=== PATIENT | female | born 1990 | race Caucasian/White ===

== ENCOUNTER 2020-12-17 15:50 | Inpatient (IN) | payer BC, SELFPAY ==
[2020-12-17] VITALS (61 sets, daily range): BP systolic 54–132; BP diastolic 46–93; PULSE 50–260; TEMP 36.2–36.7; O2SAT 98–100; BMI 29.1
--- NOTE | 2020-12-17 16:21 | LDADM ---
This patient, Giselle Tomas, was admitted to Labor/Delivery/Recovery 103 on 12/17/20 at 15:50. Plans for labor, pain management and were discussed with patient. Patient/family oriented to hospital policies and general routines including ID bracelet, bed and alarms, visiting hours, pain management, procedures, bathroom and other care routines, personal items, smoking policy, room service/diet and guest tray routines, infant security routines, and visiting hours. Patient/Family are encouraged to report perceived risks to care and to ask questions if they do not understand what they are told or what they should do. See OBIX for further documentation.
[2020-12-17 16:30] LABS: Basophils Percent Auto 0.5 % (0.2-1.2); Eosinophils Absolute Auto 0.1 K/mm3 (0-0.3); Eosinophils Percent Auto 1.2 % (0-4.4); Hematocrit 34.7 % (37.0-47.0); Hemoglobin 11.7 g/dL (12.0-15.0); Immature Granulocyte Absolute 0.05 K/mm3 (0.00-0.031); Immature Granulocyte Percent A 0.6 % (0-0.5); Immature Platelet Fraction Pct 19.3 % (0.9-11.2); Lymphocytes Absolute Auto 2.53 K/mm3 (0.9-3.2); Lymphocytes Percent Auto 31.1 % (18.3-44.2); Mean Corpuscular HGB Conc 33.7 g/dl (32-36); Mean Corpuscular Hemoglobin 27.5 pg (26-34); Mean Corpuscular Volume 81.6 fl (80-100); Mean Platelet Volume 13.5 fl (7.4-10.4); Monocytes Absolute Auto 0.6 K/mm3 (0.1-0.6); Monocytes Percent Auto 7.3 % (2.6-8.5); Neutrophils Absolute Auto 4.8 K/mm3 (1.3-6.7); Neutrophils Percent Auto 59.3 % (45.5-73.1); Platelet Count Result 164 k/mm3 (150-375); Red Blood Count 4.25 M/mm3 (4.2-5.4); Red Cell Distribution Width 12.8 % (11.5-14.5); White Blood Count 8.1 K/mm3 (4.5-10.0)
[2020-12-17] MEDS: LACTATED RINGERS 1,000 ML 125 ML IV CONT ×3 (16:30→23:32)
[2020-12-17] MEDS: DINOPROSTONE 10 MG VAG INSERT VAGINAL (16:31)
[2020-12-17] MEDS: AMPICILLIN 2 GM/NS 100 ML 2 GM/100 ML BAG IVPB (16:31)
[2020-12-17] MEDS: AMPICILLIN 1 GM/NS 50 ML 1 GM/50 ML BAG IVPB (20:30)
--- NOTE | 2020-12-17 21:24 | P.PNAN_ITS ---
Anes - Eval Pre Procedure Procedure: Labor epidural Date/Time: 12/17/20 21:24 Surgeon: joey Preop Diagnosis: pain during labor Pre Op Diagnosis: ind Patient Data Age: 30 Gender: F Height: 1.65 m Weight: 79.5 kg Last Vital Signs Temp 36.7 C 12/17/20 16:15 Pulse 71 12/17/20 18:31 BP 125/78 12/17/20 18:31 Allergies Allergy/AdvReac Type Severity Reaction Status Date / Time No Known Allergies Allergy Verified 11/25/20 15:00 Home Medications Medication Instructions Recorded Confirmed Type prenat.vits,nataliya,xkq-blhs-hufle 1 tablet PO DAILY 11/25/20 12/17/20 History [ #2] Laboratory Tests 12/17/20 12/17/20 12/17/20 16:17 16:17 16:17 WBC 8.1 K/mm3 K/mm3 (4.5-10.0) RBC 4.25 M/mm3 M/mm3 (4.2-5.4) Hgb 11.7 g/dL L g/dL (12.0-15.0) Hct 34.7 % L % (37.0-47.0) MCV 81.6 fl fl (80-100) MCH 27.5 pg pg (26-34) MCHC 33.7 g/dl g/dl (32-36) RDW 12.8 % % (11.5-14.5) Plt Count 164 k/mm3 k/mm3 (150-375) MPV 13.5 fl H fl (7.4-10.4) Immature Gran % (Auto) 0.6 % H % (0-0.5) Neut % (Auto) 59.3 % % (45.5-73.1) Lymph % (Auto) 31.1 % % (18.3-44.2) [place] % (Auto) 7.3 % % (2.6-8.5) Eos % (Auto) 1.2 % % (0-4.4) Baso % (Auto) 0.5 % % (0.2-1.2) Lymph # (Auto) 2.53 K/mm3 K/mm3 (0.9-3.2) [place] # (Auto) 0.6 K/mm3 K/mm3 (0.1-0.6) Eos # (Auto) 0.1 K/mm3 K/mm3 (0-0.3) Baso # (Auto) 0.0 K/mm3 K/mm3 (0.0-0.1) Abs Immat Gran (auto) 0.05 K/mm3 H K/mm3 (0.00-0.031) Absolute Neuts (auto) 4.8 K/mm3 K/mm3 (1.3-6.7) Absolute Nucleated RBC 0.0 K/mm3 K/mm3 (0.0-0.012) Nucleated RBC % 0.0 % % (0.0-0.2) % Immature Plt Fraction 19.3 % H % (0.9-11.2) RPR Pending Blood Type B Positive Antibody Screen Negative Patient hx anesthesia problems: none Family hx anesthesia problems: none PMFSH Past Medical History Medical History (Updated 12/17/20 @ 21:24 by Dolores Beebe CRNA) IUP (intrauterine ), incidental Family History Family History (Updated 12/17/20 @ 16:24 by Audrey Gray RN) Other No known health problems Social History Social History Smoking status: Never smoker Second hand tobacco smoke exposure: No Substance use: never Spiritual care concerns: No Exam Day of Procedure 12/17/20 21:24
[2020-12-17] MEDS: PHENYLEPHRINE 1,000 MCG/10 ML SYRINGE 100 MCG IV PUSH (21:58)
[2020-12-17] MEDS: TERBUTALINE SULFATE 1 MG/ML VIAL 0.25 MG SUB-Q (22:26)
[2020-12-17] MEDS: ONDANSETRON INJ 4 MG/2 ML VIAL IV PUSH (22:33)
--- NOTE | 2020-12-17 22:49 | PM.IMHP ---
H&P: HPI History of Present Illness Date/Time: 12/17/20 22:49 30 y/o G1 at 39 1/7 weeks by LMP 03/18/20 giving a due date of 12/23/20. GBS pos. Here for induction of labor. Cervidil was placed. She then had SROM and it has been withdrawn. Now comfortable with epidural. Had a FHR deceleration associated with tachysystole, has resolved. Tracing now Category I. Chief Complaint: Here for labor induction Review of Systems Review of Systems: All systems reviewed & are unremarkable except as noted in HPI and below PMFSH Past Medical History Medical History IUP (intrauterine ), incidental Family History Family History Other No known health problems Social History Social History Smoking status: Never smoker Second hand tobacco smoke exposure: No Substance use: never Spiritual care concerns: No Meds Home Medications and Allergies Home Medications Medication Instructions Recorded Confirmed Type prenat.vits,nataliya,tfk-lctf-rfhhs 1 tablet PO DAILY 11/25/20 12/17/20 History [ #2] Allergies Allergy/AdvReac Type Severity Reaction Status Date / Time No Known Allergies Allergy Verified 11/25/20 15:00 Vital Signs Vital Signs - 24 hr 12/17/20 16:11 12/17/20 16:15 12/17/20 16:16 Temperature 36.7 C Pulse Rate 93 92 Blood Pressure 125/93 H 123/86 Pulse Oximetry 12/17/20 16:46 12/17/20 17:01 12/17/20 17:16 Temperature Pulse Rate 75 76 76 Blood Pressure 116/82 123/81 126/84 Pulse Oximetry 12/17/20 17:31 12/17/20 17:46 12/17/20 18:01 Temperature Pulse Rate 72 73 66 Blood Pressure 122/78 123/76 132/76 Pulse Oximetry 12/17/20 18:16 12/17/20 18:31 12/17/20 21:40 Temperature Pulse Rate 93 71 Blood Pressure 116/80 125/78 Pulse Oximetry 100 12/17/20 21:41 12/17/20 21:44 12/17/20 21:45 Temperature Pulse Rate 75 82 Blood Pressure 112/74 118/75 Pulse Oximetry 100 100 12/17/20 21:46 12/17/20 21:47 12/17/20 21:49 Temperature 36.2 C L Pulse Rate 77 74 71 Blood Pressure 116/78 113/63 113/72 Pulse Oximetry 12/17/20 21:50 12/17/20 21:51 12/17/20 21:53 Temperature Pulse Rate 88 75 Blood Pressure 105/63 102/63 Pulse Oximetry 100 12/17/20 21:55 12/17/20 21:57 12/17/20 21:59 Temperature Pulse Rate 69 63 51 L Blood Pressure 98/59 L 115/61 130/85 Pulse Oximetry 98 12/17/20 22:00 12/17/20 22:01 12/17/20 22:03 Temperature Pulse Rate 65 73 Blood Pressure 111/59 L 91/61 L Pulse Oximetry 99 12/17/20 22:05 12/17/20 22:07 12/17/20 22:09 Temperature Pulse Rate 50 L 67 260 H Blood Pressure 110/82 110/75 94/72 L Pulse Oximetry 100 12/17/20 22:11 12/17/20 22:12 12/17/20 22:16 Temperature Pulse Rate 209 H 82 83 Blood Pressure 54/46 L 113/65 104/62 Pulse Oximetry 100 12/17/20 22:17 12/17/20 22:22 12/17/20 22:27 Temperature Pulse Rate Blood Pressure Pulse Oximetry 100 100 100 12/17/20 22:30 12/17/20 22:32 12/17/20 22:37 Temperature Pulse Rate 97 Blood Pressure 115/60 Pulse Oximetry 100 98 12/17/20 22:42 12/17/20 22:46 12/17/20 22:47 Temperature Pulse Rate 88 Blood Pressure 116/65 Pulse Oximetry 100 100 Exam Const: Orientation/consciousness: patient oriented x3 Other: Well-developed, well-nourished female in no acute distress. Neck: Thyroid: thyroid normal Lymphatic: no lymphadenopathy noted (in neck, axilla or inguinal nodes) Resp: Effort & Inspection: normal respiratory effort Auscultation: clear to auscultation bilaterally Cardio: Rate: regular rate Rhythm: regular rhythm Heart sounds: S1 normal heart sound present and S2 normal heart sound present GI: Other: ABD: Soft, nontender, nondistended, gravid. NST reactive. TOCO: contractions every 3-6 min.
[2020-12-17] MEDS: OXYTOCIN 30 UNITS/NS 500 ML 30 UNITS/500 ML BAG 6 UNITS IV CONT (23:32)
[2020-12-18] VITALS (91 sets, daily range): BP systolic 97–133; BP diastolic 54–88; PULSE 62–117; RESP 15–18; TEMP 36.1–37.2; O2SAT 100
[2020-12-18] MEDS: AMPICILLIN 1 GM/NS 50 ML 1 GM/50 ML BAG IVPB ×2 (00:29→04:37)
--- NOTE | 2020-12-18 05:39 | PM.OBPRVD ---
OB - Delivery Note Procedure Delivery date: 12/18/20 Procedure: Induction of labor with Induction method: per pitocin protocol and per cervidil protocol Delivery augmentation: pitocin Delivery monitor: external FHT, external uterine and internal uterine Route of delivery: Laceration Description: Perineal - 2nd Degree Delivery repair: vicryl (3-0) Specimen: Yes (cord blood) Quantitative Blood Loss (ml): 240 Anesthesia type: Epidural Disposition: PACU Complications: None Narrative: 30 y/o G1 at 39 2/7 weeks gestation who presented to the hospital for induction of labor. Cervidil was placed. She had SROM and the Cervidil was withdrawn. Oxytocin was administered intravenously. She received an epidural for pain control. Her labor progressed and her cervix dilated completely. She pushed with good effort and delivered the 's head to the perineum. A loose nuchal cord was splinted and the body delivered. The cord was reduced. The nose and mouth were bulb suctioned. After a delay, the cord was clamped and cut. The infant was handed off the field. Cord blood was collected. The placenta delivered spontaneously and was grossly normal in appearance. The usual 3 vessel cord was noted. A second degree midline perineal laceration was sustained. This was reapproximated using 3 0 Vicryl in the usual layered fashion. Excellent hemostasis resulted as did excellent reapproximation of the normal anatomy. Needle and instrument counts were correct. The patient was taken to recovery room in stable condition. The infant went to the nursery in stable condition. I was present and scrubbed for the entire delivery. [place] Baby Date of : 12/18/20 Time of : 05:15 Weeks of gestation at delivery: 39 gender: Male Weight (pounds): 7 Weight (ounces): 4 presentation: vertex position: Left Occiput Anterior Placenta delivery description: Spontaneous and Normal Configuration cord vessel description: 3 Vessels, Nuchal Cord and Delayed Cord Clamping score one minute: 8 score five minutes: 9
--- NOTE | 2020-12-18 05:41 | PM.OBDSVD ---
DS: Admitting Diagnosis Admitting Diagnosis Admitting Diagnosis: IUP at 39 weeks DS: Discharge Diagnosis Discharge Diagnosis (1) (normal spontaneous vaginal delivery): Code(s): O80 - Encounter for full-term uncomplicated delivery Status: Acute OB - DS: Summary OB Procedures : None OB Procedures Intrapartum: Spontaneous Vag Delivery OB Procedures: : None DS: Data Data Completed and Pending Labs on day of discharge: Labs from last 24 hours 12/17/20 12/17/20 12/17/20 16:17 16:17 16:17 WBC 8.1 RBC 4.25 Hgb 11.7 L Hct 34.7 L MCV 81.6 MCH 27.5 MCHC 33.7 RDW 12.8 Plt Count 164 MPV 13.5 H Immature Gran % (Auto) 0.6 H Neut % (Auto) 59.3 Lymph % (Auto) 31.1 [place] % (Auto) 7.3 Eos % (Auto) 1.2 Baso % (Auto) 0.5 Lymph # (Auto) 2.53 [place] # (Auto) 0.6 Eos # (Auto) 0.1 Baso # (Auto) 0.0 Abs Immat Gran (auto) 0.05 H Absolute Neuts (auto) 4.8 Absolute Nucleated RBC 0.0 Nucleated RBC % 0.0 % Immature Plt Fraction 19.3 H RPR Pending Blood Type B Positive Antibody Screen Negative Discharge Plan Discharge Attending physician on discharge: Chris Rees Discharging Clinician: Chris Rees Patient Disposition: Home, Self-Care Activity: pelvic rest Diet: regular Discharge Instructions: Education: Mom and Baby Guide Given to: Mother Follow-Up: Call your delivering provider's office for an appointment to be seen in: 6 Weeks Mom and baby should come to the [facility] for the follow-up appointment. Appointment Date/Time: December 20, 2020 at 8:00 am What to expect at your follow-up visit: Blood Pressure Check Physical Assessment Call [phone] if you are unable to keep your appointment time. BREAST CARE: * Wear a snug supportive bra. * For engorgement discomfort: Bottle Feeding: * May apply ice packs EPISIOTOMY/PERINEAL CARE: * Until bleeding stops, use your james bottle after urinating * Change your pad frequently throughout the day * You may take sitz baths several times a day (fill your bathtub with warm water and soak for 20 minutes.) Do NOT bathe in the water * No tub baths until seen by your physician - You may shower ACTIVITY: * Rest as much as possible. * Do not exercise or lift anything heavier than your baby (such as laundry or other children.) * Avoid stairs or driving as much as possible. * Do not put anything into the vagina. No douching, tampons, or sexual activity until seen by physician. NOTIFY PHYSICIAN IF YOU HAVE ANY QUESTIONS OR IF ANY OF THE FOLLOWING SYMPTOMS OCCUR: * If your vaginal area becomes red, swollen, or more painful than what you have experienced in the hospital. * If your vaginal bleeding becomes foul smelling. * If your vaginal bleeding becomes more heavy than a period or if your bleeding changes from pink to bright red. However, you may pass an occasional walnut-sized clot once or twice for the first week . * If you experience a sharp, shooting pain in your calves. * If you discover a hard, reddened area on your breast or if you experience flu-like symptoms. DIET: * Eat regular, well-balanced meals. * Drink plenty of fluids daily. .Call or return if temperature above 100.4? F, increased abdominal pain, increased vaginal bleeding or any new problems. Patient Instructions: Vaginal Delivery (DC) Stand Alone Forms: General Discharge Information Follow-up/Referrals: Chris Rees MD [Primary Care Provider] - 6 Weeks Discharge Medications: New ibuprofen 600 mg tablet 600 mg PO Q6H PRN (Reason: cramps) Qty: 30 RF: 0 Continued prenat.vits,nataliya,kpb-bhmc-ewhnb Tablet 1 tablet PO DAILY RF: 0 Date of admission: 12/17/20 15:50 Primary Care Provider: Chris Rees Admitting Provider: Chris Rees Attending physician on admission: Caitlyn
[2020-12-18] MEDS: OXYTOCIN 30 UNITS/NS 500 ML 30 UNITS/500 ML BAG 125 UNITS IV CONT (05:43)
[2020-12-18] MEDS: ACETAMINOPHEN 325 MG TABLET 650 MG PO ×2 (07:05→16:22)
[2020-12-18] MEDS: WITCH HAZEL 40 PADS 1 PAD TOPICAL (07:39)
--- NOTE | 2020-12-18 07:57 | OBPPTRN ---
Patient transferred to post room #286 via wheelchair. Support person present. Oriented to unit, room, information board, rooming in, admission packet and security measures. Patient verbalizes understanding.
[2020-12-18 10:21] LABS: Rapid Plasma Reagin Non-Reactive (NonReactive)
[2020-12-18] MEDS: IBUPROFEN 600 MG TABLET PO ×2 (11:57→20:27)
[2020-12-18] MEDS: DOCUSATE SODIUM 100 MG CAPSULE PO (16:22)
[2020-12-19] MEDS: IBUPROFEN 600 MG TABLET PO ×2 (02:42→08:36)
[2020-12-19] MEDS: ACETAMINOPHEN 325 MG TABLET 650 MG PO (02:42)
[2020-12-19 05:00] VITALS: BP 118/73; PULSE 69; RESP 17; TEMP 36.7
[2020-12-19 05:16] LABS: Hematocrit 29.4 % (37.0-47.0); Hemoglobin 9.5 g/dL (12.0-15.0)
--- NOTE | 2020-12-19 07:31 | PM.OBDSVD ---
DS: Admitting Diagnosis Admitting Diagnosis Admitting Diagnosis: intrauterine at term OB - DS: Summary OB Procedures : None OB Procedures Intrapartum: Spontaneous Vag Delivery OB Procedures: : None Status at Discharge Functional status at discharge: independent ambulation Overall status at discharge: patient is back to baseline Time Spent with Patient Time attestation: Total time spent providing and/or coordinating discharge services: Time spent: Less than 30 minutes Exam Const: General: comfortable and no acute distress Resp: Effort & Inspection: normal respiratory effort Auscultation: clear to auscultation bilaterally Cardio: Rate: regular rate GI: GI Palp: Yes Soft to palpation Auscultation: normal bowel sounds Other: Fundus firm below umbilicus Psych: Appearance: grossly normal Mental Status: mental status grossly normal Affect: normal affect DS: Data Data Completed and Pending Labs on day of discharge: Labs from last 24 hours 12/19/20 12/17/20 05:09 16:17 Hgb 9.5 L Hct 29.4 L RPR Non-reactive Discharge Plan Discharge Attending physician on discharge: Chris Rees Discharging Clinician: Chris Rees Patient Disposition: Home, Self-Care Activity: pelvic rest Diet: regular Discharge Instructions: Call or return if temperature above 100.4? F, increased abdominal pain, increased vaginal bleeding or any new problems. Stand Alone Forms: General Discharge Information Follow-up/Referrals: Chris Rees MD [Primary Care Provider] - 6 Weeks Discharge Medications: New ibuprofen 600 mg tablet 600 mg PO Q6H PRN (Reason: cramps) Qty: 30 RF: 0 No Action #2 Tablet 1 tablet PO DAILY RF: 0 Date of admission: 12/17/20 15:50 Primary Care Provider: Chris Rees Admitting Provider: Chris Rees Attending physician on admission: Chris Rees Condition: Stable
[2020-12-19 07:45] VITALS: BP 126/89; PULSE 85; RESP 16; TEMP 36.7; O2SAT 100
--- NOTE | 2020-12-19 07:46 | WPDANLDPN2 ---
Anes-Prog Note L&D Date/Time: 12/19/20 07:46 Comfortable throughout: labor and delivery Neuraxial method: epidural Epidural/Spinal procedure site: clean & non-tender Neuro status: Neuro function grossly intact. Cardiovascular status: normal Respiratory status: normal Airway patency: baseline Mental status: baseline Post-Op hydration status: normal Vital Signs: Last Vital Signs Temp 98.1 F 12/19/20 05:00 Pulse 69 12/19/20 05:00 Resp 17 12/19/20 05:00 BP 118/73 12/19/20 05:00 Pulse Ox 100 12/18/20 16:25 Pain score (VAS): 0 Post-procedural complaints: none Patient feedback: Patient satisfied with anesthetic care.
[2020-12-19] MEDS: MULTIVIT/MIN/PREN/FOL AC/IRON TABLET 1 TAB PO (08:37)
[2020-12-19] MEDS: DOCUSATE SODIUM 100 MG CAPSULE PO (08:37)
[2020-12-19 09:25] VITALS: PULSE 69; RESP 17; O2SAT 100
[2020-12-20 08:18] VITALS: BP 125/78; PULSE 72; RESP 20; TEMP 36.7; O2SAT 100
== END 2020-12-19 10:40 | disposition home or self-care (01) | DRG 807 ==
LOC: ANHLDR 12-18 05:42 → ANHOB2 12-18 11:27 → ANHLDR 12-22 10:07 → ANHOB2 12-22 10:07
PROVIDERS: Admitting Provider Obstetrics & Gynecology; PCP Obstetrics & Gynecology; Visit Provider Student in an Organized Health Care Education/Training Program
DX: O99.824 Streptococcus B carrier state complicating childbirth (principal); Z37.0 Single live birth; Z3A.39 39 weeks gestation of pregnancy; O36.8330 Maternal care for abnormalities of the fetal heart rate or rhythm, third trimester, not applicable or unspecified; O70.1 Second degree perineal laceration during delivery; Z86.16 Personal history of COVID-19
CPT/HCPCS: 36415; 84112; 85014; 85018; 85025; 85055; 86592; 86850; 86900; 86901; A9270; J0290; J2370; J2405; J2590; J2795; J3105; J7120

== ENCOUNTER 2022-10-18 13:23 | Outpatient (CLI) | payer BC, SELFPAY | END 2022-10-18 14:00 | disposition home or self-care (01) | LOC: ANHOBOP 14:06 | PROVIDERS: Visit Provider Obstetrics & Gynecology | DX: O41.8X90 Other specified disorders of amniotic fluid and membranes, unspecified trimester, not applicable or unspecified (principal) | CPT/HCPCS: 59025; 84112 ==

== ENCOUNTER 2022-10-22 06:49 | Inpatient (IN) | payer BC, SELFPAY ==
[2022-10-22] VITALS (107 sets, daily range): BP systolic 79–141; BP diastolic 30–95; PULSE 54–98; RESP 16–18; TEMP 36–36.8; O2SAT 79–100; BMI 29.3
--- NOTE | 2022-10-22 06:38 | PM.IMHP ---
H&P: HPI History of Present Illness Date/Time: 10/22/22 06:38 Chief Complaint: coliStasis of at term Narrative: this is a 31-year-old 2 para 1 female with an EDC 3223 confirmed by early ultrasound presents at term with cholestasis of . [facility] Past Medical History Medical History IUP (intrauterine ), incidental Family History Family History Other No known health problems Social History Social History Smoking status: Never smoker Second hand tobacco smoke exposure: No Substance use: never Spiritual care concerns: No Meds Home Medications and Allergies Home Medications Medication Instructions Recorded Confirmed Type prenat.vits,nataliya,diw-dzfo-ewdpl 1 tablet PO DAILY 11/25/20 10/04/22 History Allergies Allergy/AdvReac Type Severity Reaction Status Date / Time No Known Allergies Allergy Verified 10/04/22 14:27 Exam Const: General: cooperative, healthy appearing and comfortable Nutritional Appearance: average body habitus Orientation/consciousness: oriented to person, oriented to place and oriented to time HENMT: Head: normal to inspection Resp: Effort & Inspection: normal respiratory effort Cardio: Rate: regular rate Rhythm: regular rhythm Heart sounds: S1 normal heart sound present and S2 normal heart sound present GI: Inspection: normal to inspection ( Gravid soft uterus) Auscultation: normal bowel sounds : External Female Exam: normal external appearance Speculum Exam - Vagina: normal appearance of the vagina Assessment and Plan Assessment and plan (1) Term : Code(s): Z34.90 - Encounter for supervision of normal , unspecified, unspecified trimester Status: Acute (2) Cholestasis during : Code(s): O26.619 - Liver and biliary tract disorders in , unspecified trimester; K83.1 - Obstruction of bile duct Status: Acute Plan medical induction of labor. Spontaneous vaginal delivery expected. She has an epidural candidate
--- NOTE | 2022-10-22 06:49 | LDADM ---
This patient, Giselle Tomas, was admitted to Labor/Delivery/Recovery 109 on 10/22/22 at 06:49. Plans for labor, pain management and were discussed with patient. Patient/family oriented to hospital policies and general routines including ID bracelet, bed and alarms, visiting hours, pain management, procedures, bathroom and other care routines, personal items, smoking policy, room service/diet and guest tray routines, security routines, and visiting hours. Patient/Family are encouraged to report perceived risks to care and to ask questions if they do not understand what they are told or what they should do. See OBIX for further documentation.
[2022-10-22] MEDS: LACTATED RINGERS 1,000 ML 125 ML IV CONT ×3 (07:17→12:24)
[2022-10-22 07:22] LABS: Basophils Percent Auto 0.4 % (0.2-1.2); Eosinophils Absolute Auto 0.1 K/mm3 (0-0.3); Eosinophils Percent Auto 1.1 % (0-4.4); Hematocrit 35.9 % (37.0-47.0); Hemoglobin 11.5 g/dL (12.0-15.0); Immature Granulocyte Absolute 0.06 K/mm3 (0.00-0.031); Immature Granulocyte Percent A 0.6 % (0-0.5); Lymphocytes Absolute Auto 2.64 K/mm3 (0.9-3.2); Lymphocytes Percent Auto 28.5 % (18.3-44.2); Mean Corpuscular Hemoglobin 26.1 pg (26-34); Mean Corpuscular Volume 81.6 fl (80-100); Mean Platelet Volume 12.7 fl (7.4-10.4); Monocytes Absolute Auto 0.5 K/mm3 (0.1-0.6); Monocytes Percent Auto 5.4 % (2.6-8.5); Neutrophils Absolute Auto 5.9 K/mm3 (1.3-6.7); Platelet Count Result 177 k/mm3 (150-375); Red Cell Distribution Width 13.4 % (11.5-14.5); White Blood Count 9.3 K/mm3 (4.5-10.0)
[2022-10-22 07:36] LABS: Alanine Aminotransferase 21 U/L (6-35); Albumin Level 4.1 g/dL (3.5-5.1); Alkaline Phosphatase 171 U/L (38-126); Anion Gap 7 mmol/L (8-16); Aspartate Amino Transferase 29 U/L (14-36); Bilirubin,Total 0.6 mg/dL (0.2-1.3); Blood Urea Nitrogen 12 mg/dL (7-17); Calcium 9.2 mg/dL (8.4-10.2); Carbon Dioxide 20 mmol/L (22-30); Chloride 103 mmol/L (98-107); Estimated CRCL calculation 104 ml/min; Estimated Glomerular Filt Rate > 60; Glucose 77 mg/dL (65-110); Potassium 3.8 mmol/L (3.4-5.0); Sodium 130 mmol/L (137-145)
[2022-10-22] MEDS: OXYTOCIN 30 UNITS/NS 500 ML 30 UNITS/500 ML BAG IV CONT (07:41)
--- NOTE | 2022-10-22 12:59 | PM.OBPNLAB ---
Pain Control Date/time seen: 10/22/22 12:59 Pain control: tolerating well and epidural Pelvic Exam Dilation (cm): 4 Effacement (%): 70 station: -1 Amniotic membrane status: Leaking Comments: iupc placed
--- NOTE | 2022-10-22 13:40 | WPDANESEPPF ---
Anes - Initial Pre Proc Eval Date/Time: 10/22/22 13:40 Surgeon: Hansel Licea MD Pre Op Diagnosis: Induction of Labor Patient Data Age: 31 Gender: F Height: 1.65 m Weight: 80 kg Last Vital Signs Temp 36.1 C L 10/22/22 12:30 Pulse 63 10/22/22 13:31 BP 113/73 10/22/22 13:31 Pulse Ox 100 10/22/22 13:35 O2 Del Method Room Air 10/22/22 07:25 Allergies Allergy/AdvReac Type Severity Reaction Status Date / Time No Known Allergies Allergy Verified 10/04/22 14:27 Home Medications Medication Instructions Recorded Confirmed Type prenat.vits,nataliya,nel-vghc-tbmvo 1 tablet PO DAILY 11/25/20 10/22/22 History Laboratory Tests 10/22/22 10/22/22 10/22/22 07:05 07:05 07:05 WBC 9.3 K/mm3 K/mm3 (4.5-10.0) RBC 4.40 M/mm3 M/mm3 (4.2-5.4) Hgb 11.5 g/dL L g/dL (12.0-15.0) Hct 35.9 % L % (37.0-47.0) MCV 81.6 fl fl (80-100) MCH 26.1 pg pg (26-34) MCHC 32.0 g/dl g/dl (32-36) RDW 13.4 % % (11.5-14.5) Plt Count 177 k/mm3 k/mm3 (150-375) MPV 12.7 fl H fl (7.4-10.4) Immature Gran % (Auto) 0.6 % H % (0-0.5) Neut % (Auto) 64.0 % % (45.5-73.1) Lymph % (Auto) 28.5 % % (18.3-44.2) [place] % (Auto) 5.4 % % (2.6-8.5) Eos % (Auto) 1.1 % % (0-4.4) Baso % (Auto) 0.4 % % (0.2-1.2) Lymph # (Auto) 2.64 K/mm3 K/mm3 (0.9-3.2) [place] # (Auto) 0.5 K/mm3 K/mm3 (0.1-0.6) Eos # (Auto) 0.1 K/mm3 K/mm3 (0-0.3) Baso # (Auto) 0.0 K/mm3 K/mm3 (0.0-0.1) Abs Immat Gran (auto) 0.06 K/mm3 H K/mm3 (0.00-0.031) Absolute Neuts (auto) 5.9 K/mm3 K/mm3 (1.3-6.7) Absolute Nucleated RBC 0.0 K/mm3 K/mm3 (0.0-0.012) Nucleated RBC % 0.0 % % (0.0-0.2) Sodium Potassium Chloride Carbon Dioxide Anion Gap BUN Creatinine Estim Creat Clear Calc Estimated GFR Glucose Calcium Total Bilirubin AST ALT Alkaline Phosphatase Total Protein Albumin RPR Pending Blood Type B Positive Antibody Screen Negative 10/22/22 07:05 WBC RBC Hgb Hct MCV MCH MCHC RDW Plt Count MPV Immature Gran % (Auto) Neut % (Auto) Lymph % (Auto) [place] % (Auto) Eos % (Auto) Baso % (Auto) Lymph # (Auto) [place] # (Auto) Eos # (Auto) Baso # (Auto) Abs Immat Gran (auto) Absolute Neuts (auto) Absolute Nucleated RBC Nucleated RBC % Sodium 130 mmol/L L mmol/L (137-145) Potassium 3.8 mmol/L mmol/L (3.4-5.0) Chloride 103 mmol/L mmol/L (98-107) Carbon Dioxide 20 mmol/L L mmol/L (22-30) Anion Gap 7 mmol/L L mmol/L (8-16) BUN 12 mg/dL mg/dL (7-17) Creatinine 0.70 mg/dL mg/dL (0.7-1.0) Estim Creat Clear Calc 104 ml/min ml/min Estimated GFR > 60 (59 - ) Glucose 77 mg/dL mg/dL (65-110) Calcium 9.2 mg/dL mg/dL (8.4-10.2) Total Bilirubin 0.6 mg/dL mg/dL (0.2-1.3) AST 29 U/L U/L (14-36) ALT 21 U/L U/L (6-35) Alkaline Phosphatase 171 U/L H U/L (38-126) Total Protein 8.0 g/dL g/dL (6.3-8.2) Albumin 4.1 g/dL g/dL (3.5-5.1) RPR Blood Type Antibody Screen Patient hx anesthesia problems: none Family hx anesthesia problems: none Results Review: All pre-operative results and documents have been reviewed as part of the pre-operative evaluation. [facility] Past Medical History Medical History IUP (intrauterine ), incidental Family History Fami
--- NOTE | 2022-10-22 14:40 | PM.OBPRVD ---
OB - Delivery Note Procedure Delivery date: 10/22/22 Procedure: mil Events: Other (cholestasis of ) Induction method: AROM Delivery augmentation: Pitocin Delivery monitor: External FHT and Internal Uterine Route of delivery: Episiotomy description: None Laceration Description: Perineal - 2nd Degree Delivery repair: vicryl Specimen: No Quantitative Blood Loss (ml): 60 Anesthesia type: Epidural Disposition: Floor Baby Date of : 10/22/22 Time of : 14:27 Weeks of gestation at delivery: 38 Infant gender: Male Weight (pounds): 8 Weight (ounces): 4 presentation: vertex position: Left Occiput Anterior Placenta delivery description: Spontaneous Cord Vessel Description: 3 Vessels and Delayed Cord Clamping score one minute: 9 score five minutes: 9
[2022-10-22] MEDS: OXYTOCIN 30 UNITS/NS 500 ML 30 UNITS/500 ML BAG 125 UNITS IV CONT (15:04)
--- NOTE | 2022-10-22 17:10 | OBPPTRN ---
Patient transferred to post room #281 via wheelchair. Support person present. Oriented to unit, room, information board, rooming in, admission packet and security measures. Patient verbalizes understanding.
[2022-10-22] MEDS: IBUPROFEN 600 MG TABLET PO (19:00)
[2022-10-22] MEDS: ACETAMINOPHEN 325 MG TABLET 650 MG PO (22:21)
[2022-10-23] MEDS: IBUPROFEN 600 MG TABLET PO ×2 (01:01→08:34)
[2022-10-23 04:40] VITALS: BP 119/80; PULSE 83; RESP 18; TEMP 36.4
[2022-10-23] MEDS: ACETAMINOPHEN 325 MG TABLET 650 MG PO ×2 (04:46→13:24)
[2022-10-23 05:52] LABS: Hematocrit 29.6 % (37.0-47.0); Hemoglobin 9.6 g/dL (12.0-15.0)
--- NOTE | 2022-10-23 07:14 | PM.OBPNVD ---
OB - PN: Subj Subjective Date/time seen: 10/23/22 07:14 Patient comments: no complaints and pain well controlled baby status: doing well and nursing well OB - PN: Obj Data Labs 10/23/22 04:45 10/22/22 07:05 Labs: Laboratory Results - last 24 hr 10/22/22 10/22/22 10/22/22 07:05 07:05 07:05 WBC 9.3 RBC 4.40 Hgb 11.5 L Hct 35.9 L MCV 81.6 MCH 26.1 MCHC 32.0 RDW 13.4 Plt Count 177 MPV 12.7 H Immature Gran % (Auto) 0.6 H Neut % (Auto) 64.0 Lymph % (Auto) 28.5 [place] % (Auto) 5.4 Eos % (Auto) 1.1 Baso % (Auto) 0.4 Lymph # (Auto) 2.64 [place] # (Auto) 0.5 Eos # (Auto) 0.1 Baso # (Auto) 0.0 Abs Immat Gran (auto) 0.06 H Absolute Neuts (auto) 5.9 Absolute Nucleated RBC 0.0 Nucleated RBC % 0.0 Sodium 130 L Potassium 3.8 Chloride 103 Carbon Dioxide 20 L Anion Gap 7 L BUN 12 Creatinine 0.70 Estim Creat Clear Calc 104 Estimated GFR > 60 Glucose 77 Calcium 9.2 Total Bilirubin 0.6 AST 29 ALT 21 Alkaline Phosphatase 171 H Total Protein 8.0 Albumin 4.1 Blood Type B Positive Antibody Screen Negative 10/23/22 04:45 WBC RBC Hgb 9.6 L Hct 29.6 L MCV MCH MCHC RDW Plt Count MPV Immature Gran % (Auto) Neut % (Auto) Lymph % (Auto) [place] % (Auto) Eos % (Auto) Baso % (Auto) Lymph # (Auto) [place] # (Auto) Eos # (Auto) Baso # (Auto) Abs Immat Gran (auto) Absolute Neuts (auto) Absolute Nucleated RBC Nucleated RBC % Sodium Potassium Chloride Carbon Dioxide Anion Gap BUN Creatinine Estim Creat Clear Calc Estimated GFR Glucose Calcium Total Bilirubin AST ALT Alkaline Phosphatase Total Protein Albumin Blood Type Antibody Screen OB - PN A/P Plan day: 1 Plan: routine care Time Spent With Patient Time: Total time spent is greater than 50% in coordination of care (as documented) at patient's floor/unit and/or counseling patient: Time with patient: less than 15 minutes Exam Const: General: cooperative, healthy appearing and comfortable Nutritional Appearance: average body habitus Orientation/consciousness: oriented to person, oriented to place and oriented to time HENMT: Head: normal to inspection Resp: Effort & Inspection: normal respiratory effort Cardio: Rate: regular rate Rhythm: regular rhythm Heart sounds: S1 normal heart sound present and S2 normal heart sound present GI: Inspection: normal to inspection
--- NOTE | 2022-10-23 07:29 | PM.DS ---
DS: Admitting Diagnosis Discharge Date Admitting Diagnosis term /cholestasis of DS: Discharge Diagnosis Discharge Diagnosis (1) Cholestasis during : Code(s): O26.619 - Liver and biliary tract disorders in , unspecified trimester; K83.1 - Obstruction of bile duct Status: Acute (2) (normal spontaneous vaginal delivery): Code(s): O80 - Encounter for full-term uncomplicated delivery Status: Acute (3) Term : Code(s): Z34.90 - Encounter for supervision of normal , unspecified, unspecified trimester Status: Acute DS: Summary Hospital Course Reason for hospitalization: induction of labor at term for cholestasis of Hospital Course: with his 31-year-old 2 now para 2 was admitted at term for induction of labor secondary to cholestasis of . She underwent spontaneous vaginal delivery on 10/22/2022. Her hospital course over 24hours unremarkable. She was afebrile. She was up, ambulating, bottle feeding, voiding without difficulty, and eating a regular diet. Time Spent with Patient Time attestation: Total time spent providing and/or coordinating discharge services: Exam Const: General: cooperative, healthy appearing and comfortable Nutritional Appearance: average body habitus Orientation/consciousness: oriented to person, oriented to place and oriented to time HENMT: Head: normal to inspection Resp: Effort & Inspection: normal respiratory effort Cardio: Rate: regular rate Rhythm: regular rhythm Heart sounds: S1 normal heart sound present and S2 normal heart sound present GI: Inspection: normal to inspection ( Fundus firm below the umbilicus) DS: Data Data Completed and Pending Labs on day of discharge: Labs from last 24 hours 10/23/22 10/22/22 10/22/22 04:45 07:05 07:05 WBC RBC Hgb 9.6 L Hct 29.6 L MCV MCH MCHC RDW Plt Count MPV Immature Gran % (Auto) Neut % (Auto) Lymph % (Auto) Barren % (Auto) Eos % (Auto) Baso % (Auto) Lymph # (Auto) Barren # (Auto) Eos # (Auto) Baso # (Auto) Abs Immat Gran (auto) Absolute Neuts (auto) Absolute Nucleated RBC Nucleated RBC % Sodium 130 L Potassium 3.8 Chloride 103 Carbon Dioxide 20 L Anion Gap 7 L BUN 12 Creatinine 0.70 Estim Creat Clear Calc 104 Estimated GFR > 60 Glucose 77 Calcium 9.2 Total Bilirubin 0.6 AST 29 ALT 21 Alkaline Phosphatase 171 H Total Protein 8.0 Albumin 4.1 Blood Type B Positive Antibody Screen Negative 10/22/22 07:05 WBC 9.3 RBC 4.40 Hgb 11.5 L Hct 35.9 L MCV 81.6 MCH 26.1 MCHC 32.0 RDW 13.4 Plt Count 177 MPV 12.7 H Immature Gran % (Auto) 0.6 H Neut % (Auto) 64.0 Lymph % (Auto) 28.5 Barren % (Auto) 5.4 Eos % (Auto) 1.1 Baso % (Auto) 0.4 Lymph # (Auto) 2.64 Barren # (Auto) 0.5 Eos # (Auto) 0.1 Baso # (Auto) 0.0 Abs Immat Gran (auto) 0.06 H Absolute Neuts (auto) 5.9 Absolute Nucleated RBC 0.0 Nucleated RBC % 0.0 Sodium Potassium Chloride Carbon Dioxide Anion Gap BUN Creatinine Estim Creat Clear Calc Estimated GFR Glucose Calcium Total Bilirubin AST ALT Alkaline Phosphatase Total Protein Albumin Blood Type Antibody Screen Discharge Plan Discharge Attending physician on discharge: Hansel Jerez Discharging Clinician: Hansel Jerez Patient Disposition: Home, Self-Care Activity: may shower and pelvic rest Diet: heart healthy Patient Instructions: Antibiotic Form Stand Alone Forms: General Discharge Information Follow-up/Referrals: Hansel Jerez MD [Physician] - Discharge Medications: Continued prenat.vits,nataliya,[id number] Tablet 1 tablet PO DAILY Date of admission: 10/22/22 06:49 Primary Care Provider: UNKNOWN,DOCTOR Admitting Provider:
--- NOTE | 2022-10-23 07:57 | WPDANLDPN2 ---
Anes-Prog Note L&D Date/Time: 10/23/22 07:57 Comfortable throughout: labor and delivery Neuraxial method: epidural Epidural/Spinal procedure site: clean & non-tender Neuro status: Neuro function grossly intact. Cardiovascular status: normal Respiratory status: normal Airway patency: baseline Mental status: baseline Post-Op hydration status: normal Vital Signs: Last Vital Signs Temp 36.4 C 10/23/22 04:40 Pulse 83 10/23/22 04:40 Resp 18 10/23/22 04:40 BP 119/80 10/23/22 04:40 Pulse Ox 99 10/22/22 17:20 O2 Del Method Room Air 10/22/22 17:20 Pain score (VAS): 08/17 I/O: Intake & Output 10/22/22 10/22/22 10/23/22 15:59 23:59 07:59 Intake Total 2500 740 Output Total 60 58 Balance 2440 682 Post-procedural complaints: none Patient feedback: Patient satisfied with anesthetic care.
[2022-10-23 08:15] VITALS: BP 139/90; PULSE 91; RESP 18; TEMP 36.5; O2SAT 99
[2022-10-23] MEDS: POLYSACCHARIDE IRON COMPLEX 150 MG CAPSULE PO (08:32)
[2022-10-23] MEDS: MULTIVIT/MIN/PREN/FOL AC/IRON TABLET 1 TAB PO (08:33)
[2022-10-23] MEDS: DOCUSATE SODIUM 100 MG CAPSULE PO (08:33)
--- NOTE | 2022-10-23 10:29 | PC.NURSE ---
Patient viewed the discharge video Mother [facility] Baby [facility], The First Two Weeks . Patient was given the opportunity and encouraged to ask questions. Patient verbalized understanding of information shared and has been given the mother/baby guide for home reference.
[2022-10-23 12:00] VITALS: BP 117/72; PULSE 79; RESP 18; TEMP 36.4; O2SAT 99
[2022-10-23 13:21] LABS: Rapid Plasma Reagin Non-Reactive (NonReactive)
[2022-10-25 10:07] VITALS: BP 127/89; PULSE 83; RESP 18; TEMP 37.1; O2SAT 99
== END 2022-10-23 16:30 | disposition home or self-care (01) | DRG 805 ==
LOC: ANHLDR 06:55 → ANHOB2 17:13
PROVIDERS: Admitting Provider Obstetrics & Gynecology; Visit Provider Obstetrics & Gynecology
DX: O26.62 Liver and biliary tract disorders in childbirth (principal); K83.1 Obstruction of bile duct; Z37.0 Single live birth; O70.1 Second degree perineal laceration during delivery; Z3A.38 38 weeks gestation of pregnancy
CPT/HCPCS: 36415; 80053; 85014; 85018; 85025; 86592; 86850; 86900; 86901; A9270; J2590; J2795; J7120